=== PATIENT | male | born 2005 | race Caucasian/White ===

== ENCOUNTER 2024-02-03 20:01 | Inpatient (IN) ==
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
[2024-02-03] MEDS: ACETAMINOPHEN 500 MG TAB PO STA (21:02)
[2024-02-03] MEDS: SODIUM CHLORIDE 0.9% 500 ML IV ONE (21:06)
[2024-02-03] MEDS: ALBUT/IPRATROP 3MG/0.5MG NEB 3 ML VIAL NEB STA (21:08)
[2024-02-03] MEDS: cefTRIAXone SODIUM 2,000 MG/50 ML BAG IV STA (21:40)
--- NOTE | 2024-02-03 21:50 | XRay Report ---
SINGLE VIEW CHEST CLINICAL HISTORY: Cough and fever. Hypoxia. FINDINGS: An AP, portable, upright chest radiograph is obtained. No prior studies are available for c omparison at the time of dictation. The cardiomediastinal silhouette is unremarkable. Airspace consol idation is seen at both lung bases. Trace pleural effusions are suspected. No pneumothorax is seen. T he bony thorax is grossly intact. IMPRESSION: 1. Bibasilar airspace consolidation is typical for pneumonia. Clinical correlation will be required a nd radiographic follow-up to resolution is recommended. 2. Suspect trace pleural effusions. ACT 112: Negative or not required by law. Electronically signed by: Ricardo Mtz M.D. 02/03/2024 9:49 PM
[2024-02-03 21:54] LABS: Basophils # (auto) 0.02 K/uL (0.00-0.20); Basophils % (auto) 0.2 %; Eosinophils # (auto) 0.01 K/uL (0.00-0.50); Eosinophils % (auto) 0.1 %; Hematocrit (blood only) 37.9 % (42.0-52.0); Hemoglobin 12.7 g/dl (14.0-18.0); Immature Granulocytes # (auto) 0.06 K/uL (0.01-0.20); Immature Granulocytes % (auto) 0.6 %; Lymphocytes # (auto) 1.65 K/uL (1.20-3.40); Lymphocytes % (auto) 17.5 %; Mean Corpuscular Hemoglobin 28.2 pg (25.0-34.0); Mean Corpuscular Hgb Conc 33.5 g/dL (32.0-36.0); Mean Corpuscular Volume 84.2 fL (80.0-100.0); Mean Platelet Volume 9.8 fL (9.4-12.4); Monocytes # (auto) 0.86 K/uL (0.11-0.59); Monocytes % (auto) 9.1 %; Neutrophils # (auto) 6.82 K/uL (1.40-6.50); Neutrophils % (auto) 72.5 %; Platelet Count 256 K/uL (130-400); RDW Coefficient of Variation 13.6 % (11.5-14.5); RDW Standard Deviation 42.3 fL (36.4-46.3); White Blood Count 9.42 K/ul (4.8-10.8)
[2024-02-03] MEDS: DOXYCYCLINE HYCLATE 100 MG CAP PO STA (21:55)
[2024-02-03 22:12] LABS: Albumin Globulin Ratio 1.1 (0.9-2); Albumin Level 3.9 gm/dl (3.4-5.0); BUN Creatinine Ratio 14.6 (10-20); Bilirubin,Total 0.6 mg/dl (0.2-1.0); Creatinine Clr Calc Pharmacy 166.9 ml/min; Globulin 3.7 gm/dl (2.5-4.0); Potassium 3.7 mmol/L (3.5-5.1); Total Protein 7.6 gm/dl (6.0-8.3)
--- NOTE | 2024-02-03 22:29 | History & Physical Report ---
"Date of Service February 03, 2024 Assessment & Plan (1) Acute dyspnea: (2) Pneumonia: (3) Acute hypoxemic respiratory failure: Plan Pneumonia | Acute Hypoxic Respiratory Failure -Chest x-ray shows evidence of bibasilar lung space opacities -CT chest ordered, results pending -WBC 9.42, neutrophil predominance. Hgb slightly low at 12.7 -Respiratory biofire negative, MRSA negative -Blood cultures collected in ED, results pending -Consider possible environmental exposures of ?mold at home and handling fish bait -Histoplasmosis, legionella urine tests pending -Sputum cultures ordered -Lactate of 2.2 -> 1.1, procal 0.23 -Received Ceftriaxone, Doxycycline in ED -Will now start Zosyn, Azithromycin -Currently at 95% SPO2 on 2L NC, wean supplemental oxygen as able -Monitor daily CBC -Guaifenesin, Tylenol PRN. Duonebs PRN, encourage incentive spirometer use. Admit to: Med tele Diet: Regular VTE Prophylaxis: Lovenox Code Status: Full Code History of Present Illness Primary Care Provider: NO PCP Maikol Tamayo is a 18 year-old male who presented to the ED for concerns of shortness of breath. He has no significant past medical history. Patient notes that last weekend he began feeling unwell with body aches, nausea, vomiting. States he continued to be symptomatic throughout the week and went to urgent care on , had a negative COVID test at that time and was told he likely has a viral illness. Patient states that he has had intermittent fevers with temps up to 102F, although has not had a fever in over 24 hours. States that at this time his other symptoms have resolved except for a productive cough and shortness of breath. States that he decided to go to the ED today as he got out of bed and felt lightheaded and more short of breath. Currently patient endorses improvement in his breathing with supplemental oxygen and breathing treatment. Denies current chest pain, but endorses some pain with deep breaths and cough. Patient states that he works at [email or web address] in the [employer] department. Notes that last weekend around the time his symptoms started, he had emptied fish bait into the dumpster at work (does not routinely perform this task). Denies any recent travel out of the state or country, denies any known exposure to anyone who is sick or has traveled outside of the country. States he is a lifelong non-smoker and does not vape. Patient's mother is at bedside and recalls that there is some dark/?brown colored growths at the ceiling in the bathroom which she believes is due to the fact that the exhaust fan is not working. Denies any prior known mold exposures. ED Course: -CBC, CMP, procal, lactate -500mL NSS bolus -Chest x-ray -Respiratory biofire -Received Ceftriaxone, doxycycline Allergies Allergy/AdvReac Type Severity Reaction Status Date / Time No Known Allergies Allergy Verified 02/03/24 20:28 Home Medications Medication Instructions Recorded Confirmed Type No Known Home Medications 02/04/24 02/04/24 History Past Med/Surg History Problem List (Updated 02/03/24 @ 23:14 by Don Louie MD) Acute dyspnea (Acute) Pneumonia (Acute) Acute hypoxemic respiratory failure (Acute) Social History Smoking Status: Never smoker Second Hand Exposure: No; Do You Dip or Chew Tobacco: No; Tobacco Cessation Education Requested by Patient: No Hx Alcohol Use: No Hx Substance Use: No Preferred Language: Belarusian Communication Ability: Effective Accounting Support Specialist Required: No Beliefs That Will Affect Care: None Current Living Situation: Family Other Information That Helps Us Care for You: No Feels Safe at Home: Yes Safety Concerns: Feels Safe At This Time Assistive Devices: None Review of Systems Review of Systems: As per above Physical Exam Constitutional: WD/WN, vitals as above Eyes: + anicteric sclerae; no conjunctival abn ormality ENMT: Ears: no external ear abnormality Nose: no external nose abnormality Moist mucous membranes Neck: trachea midline, no thyromegaly No lymphadenopathy appreciated. Patient endorses mild tenderness posterior to left ear. Respiratory: normal respiratory effort; no respiratory distress Auscultation: + diminished lung sounds and + rhonchi Cardiovascular: Rate/Rhythm: regular rhythm and + tachycardic Extremities: no edema Gastrointestinal (Abdomen): Inspection/Auscultation: abdomen normal to inspection; abdomen not distended Percussion/Palpation: abdomen soft; abdomen nontender Musculoskeletal: Moves all limbs independently Skin: no rashes, warm and dry Neurologic: No focal deficits appreciated Psychiatric: A+Ox3, euthymic affect Results & Data Results & Data Vital Signs (Past 12 Hours) Vital Signs Temp Pulse Resp BP Pulse Ox O2 Del Method O2 Flow Rate 02/03/24 20:30 108 H 38 H 155/78 H 95 Nasal Cannula 2 02/03/24 20:15 116 H 02/03/24 20:12 88 L Nasal Cannula 3 02/03/24 20:08 88 L Room Air, Nasal Cannula 0 02/03/24 20:05 36.9 C 130 H 20 87 L Diagnostic Findings Chest X-Ray 02/03/24 20:43 SINGLE VIEW CHEST CLINICAL HISTORY: Cough and fever. Hypoxia. FINDINGS: An AP, portable, upright chest radiograph is obtained. No prior studies are available for comparison at the time of dictation. The cardiomediastinal silhouette is unremarkable. Airspace consolidation is seen at both lung bases. Trace pleural effusions are suspected. No pneumothorax is seen. The bony thorax is grossly intact. IMPRESSION: 1. Bibasilar airspace consolidation is typical for pneumonia. Clinical correlation will be required and radiographic follow-up to resolution is recom mended. 2. Suspect trace pleural effusions. ACT 112: Negative or not required by law. Electronically signed by: Ricardo Mtz M.D. 02/03/2024 9:49 PM Supervising Physician Co-Signing Physician Notes Attending addendum: I have physically seen this patient, have supervised the medical residents activities, and agree with the H&P unless as otherwise noted. Assessment and Plan: Acute respiratory failure with hypoxia/bibasilar pneumonia- Patient reports exposure to fish bait while working at [employer] the day that he became sick Symptoms of shortness of breath, intermittently productive cough, and tingling of his skin Respiratory BioFire test negative MRSA negative Follow blood cultures Follow sputum cultures, histoplasmosis antibody, urine Legionella antigen From the ED received the following: Ceftriaxone 2 g IV, doxycycline 100 mg p.o., DuoNeb, normal saline 500 mL bolus and Tylenol 1 g p.o. Admit on Zosyn 4.5 g IV every 8 hours, and azithromycin 500 mg IV daily Guaifenesin extended release 1200 mg p.o. every 12 hours Acetaminophen 650 mg by mouth every 6 hours as needed mild pain or fever DuoNebs every 2 hours as needed Nasal cannula oxygen, titrate to keep pulse ox 94-95% Resident Activity Tracking Resident Involvement: Resident Care Provided Care Provided: Adult Hospital Medicine (2) Pneumonia Laterality: bilateral Lung location: lower lobe of lung Pneumonia type: due to unspecified organism Qualified Code(s): J18.9 - Pneumonia, unspecified organism"
[2024-02-03 22:41] LABS: Adenovirus PCR Not Detected (NotDetected); Bordetella parapertussis PCR Not Detected (NotDetected); Bordetella pertussis PCR Not Detected (NotDetected); Chlamydia pneumoniae PCR Not Detected (NotDetected); Coronavirus 229E PCR Not Detected (NotDetected); Coronavirus CoV-2 (COVID19)PCR Not Detected (NotDetected); Coronavirus HKU1 PCR Not Detected (NotDetected); Coronavirus NL63 PCR Not Detected (NotDetected); Coronavirus OC43PCR Not Detected (NotDetected); Human Metapneumovirus PCR Not Detected (NotDetected); Influenza A PCR Not Detected (NotDetected); Influenza B PCR Not Detected (NotDetected); Mycoplasma pneumoniae PCR Not Detected (NotDetected); Parainfluenza Virus 1 PCR Not Detected (NotDetected); Parainfluenza Virus 2 PCR Not Detected (NotDetected); Parainfluenza Virus 3 PCR Not Detected (NotDetected); Parainfluenza Virus 4 PCR Not Detected (NotDetected); Respiratory Syncytial VirusPCR Not Detected (NotDetected); Rhinovirus/Enterovirus PCR Not Detected (NotDetected)
[2024-02-04] MEDS ORDERED: POLYETHYLENE (MIRALAX) 17 GM PACK PO PRN (00:50)
[2024-02-04] MEDS ORDERED: ONDANSETRON INJ 2 MG/ML 2 ML VIAL IV PRN (00:50)
[2024-02-04] MEDS ORDERED: ALBUT/IPRATROP 3MG/0.5MG NEB 3 ML VIAL NEB PRN (00:50)
--- NOTE | 2024-02-04 01:46 | CT Scan Report ---
Exam(s): CT CHEST Without Contrast EXAM: CT Chest Without Intravenous Contrast CLINICAL HISTORY: Reason for exam: pneumonia, hypoxia. TECHNIQUE: Axial computed tomography images of the chest without intravenous contrast. CTDI is 28.1 mGy and DLP is 884.19 mGy-cm. Automated exposure control was utilized for the study. A dose lowering technique was utilized adhering to the principles of ALARA. COMPARISON: No relevant prior studies available. FINDINGS: Lungs: Consolidations with air bronchograms in the lingula and right lower lobe. Additional patchy infiltrates within the bilateral lung alexander. No mass. Pleural space: Trace right pleural effusion. No pneumothorax. Heart: Unremarkable. No cardiomegaly. No significant pericardial effusion. No significant coronary artery calcifications. Bones/joints: Unremarkable. No acute fracture. No dislocation. Soft tissues: Unremarkable. Vasculature: Unremarkable. No thoracic aortic aneurysm. Lymph nodes: Mildly enlarged mediastinal and right hilar lymph nodes, likely reactive. IMPRESSION: Consolidations with air bronchograms in the lingula and right lower lobe. Additional patchy infiltrates within the bilateral lung alexander. Appearance is consistent with multifocal pneumonia. Electronically signed by: Spencer Blanco M.D. 02/04/24 01:45 AM
[2024-02-04] MEDS: 4.5GM X1 IV STA (02:48)
[2024-02-04] MEDS: AZITHROMYCIN 500 MG in DEXTROSE 5% 250 ML IV SCH (02:49)
[2024-02-04] MEDS: ACETAMINOPHEN 325 MG TAB PO PRN (04:17)
--- NOTE | 2024-02-04 06:53 | Hospitalist Progress Note ---
"Date of Service February 04, 2024 Assessment & Plan (1) Acute dyspnea: (2) Pneumonia: (3) Acute hypoxemic respiratory failure: Plan Pneumonia | Acute Hypoxic Respiratory Failure -Chest x-ray shows evidence of bibasilar lung space opacities -CT chest ordered, results pending -WBC 9.42, neutrophil predominance. Hgb slightly low at 12.7 -Respiratory biofire negative, MRSA negative -Blood cultures collected in ED, results pending -Consider possible environmental exposures of ?mold at home and handling fish bait -Histoplasmosis, legionella urine tests pending -Sputum cultures ordered -Lactate of 2.2 -> 1.1, procal 0.23 -Received Ceftriaxone, Doxycycline in ED -Will now start Zosyn, Azithromycin -Currently at 95% SPO2 on 2L NC, wean supplemental oxygen as able -Monitor daily CBC -Guaifenesin, Tylenol PRN. Duonebs PRN, encourage incentive spirometer use. Admit to: Med tele Diet: Regular VTE Prophylaxis: Lovenox Code Status: Full Code Admission and Anticipated Discharge Date Admission Date: February 03, 2024 Results & Data Results & Data Vital Signs (Past 12 Hours) Vital Signs Temp Pulse Pulse Resp BP BP Pulse Ox 02/04/24 01:17 110 H 02/04/24 00:00 115 H 18 142/73 H 94 02/03/24 23:15 115 H 18 118/67 91 02/03/24 21:56 02/03/24 21:56 36.7 C 117 H 18 124/64 93 02/03/24 20:30 108 H 38 H 155/78 H 95 02/03/24 20:15 116 H 02/03/24 20:12 88 L 02/03/24 20:08 88 L 02/03/24 20:05 36.9 C 130 H 20 87 L O2 Del Method O2 Flow Rate 02/04/24 01:17 02/04/24 00:00 Nasal Cannula 3 02/03/24 23:15 Nasal Cannula 3 02/03/24 21:56 Nasal Cannula 2 02/03/24 21:56 Nasal Cannula 2 02/03/24 20:30 Nasal Cannula 2 02/03/24 20:15 02/03/24 20:12 Nasal Cannula 3 02/03/24 20:08 Room Air, Nasal Cannula 0 02/03/24 20:05 (2) Pneumonia Laterality: bilateral Lung location: lower lobe of lung Pneumonia type: due to unspecified organism Qualified Code(s): J18.9 - Pneumonia, unspecified organism"
[2024-02-04 07:06] LABS: Basophils # (auto) 0.02 K/uL (0.00-0.20); Basophils % (auto) 0.2 %; Eosinophils # (auto) 0.02 K/uL (0.00-0.50); Eosinophils % (auto) 0.2 %; Hematocrit (blood only) 35.4 % (42.0-52.0); Hemoglobin 12.1 g/dl (14.0-18.0); Immature Granulocytes # (auto) 0.05 K/uL (0.01-0.20); Immature Granulocytes % (auto) 0.6 %; Lymphocytes # (auto) 1.34 K/uL (1.20-3.40); Lymphocytes % (auto) 16.1 %; Mean Corpuscular Hemoglobin 28.3 pg (25.0-34.0); Mean Corpuscular Hgb Conc 34.2 g/dL (32.0-36.0); Mean Corpuscular Volume 82.9 fL (80.0-100.0); Mean Platelet Volume 9.3 fL (9.4-12.4); Monocytes # (auto) 0.69 K/uL (0.11-0.59); Monocytes % (auto) 8.3 %; Neutrophils % (auto) 74.6 %; Platelet Count 305 K/uL (130-400); RDW Coefficient of Variation 13.7 % (11.5-14.5); RDW Standard Deviation 41.1 fL (36.4-46.3); Red Blood Count 4.27 M/uL (4.70-6.10); White Blood Count 8.32 K/ul (4.8-10.8)
[2024-02-04 07:28] LABS: Albumin Level 3.8 gm/dl (3.4-5.0); BUN Creatinine Ratio 12.9 (10-20); Bilirubin,Total 0.6 mg/dl (0.2-1.0); Creatinine Clr Calc Pharmacy 160.3 ml/min; Globulin 3.7 gm/dl (2.5-4.0); Potassium 3.9 mmol/L (3.5-5.1); Total Protein 7.5 gm/dl (6.0-8.3)
[2024-02-04] MEDS: ENOXAPARIN INJ 40 MG/0.4 ML SYR SQ SCH (07:45)
[2024-02-04] MEDS: PIPERACILLIN/TAZOBACTAM 4.5 GM/100 ML BAG IV SCH (07:45)
--- NOTE | 2024-02-04 09:27 | Hospitalist Progress Note ---
Date of Service February 04, 2024 Assessment & Plan (1) Pneumonia: Plan: Presented after one week of worsening cough and shortness of breath. No PMH. -Chest x-ray shows evidence of bibasilar lung space opacities -CT chest: consisent with multifocal penumonia. - no leukocystosis. Respiratory biofire negative, MRSA negative. Procal 0.23 -Blood cultures: pending - sputum culture: needs to be recollected -Consider possible environmental exposures of ?mold at home and handling fish bait -Histoplasmosis, legionella urine tests pending -Continue Zosyn, Azithromycin -Guaifenesin, Tylenol PRN. Duonebs PRN, encourage incentive spirometer use. AM CBC (2) Acute hypoxemic respiratory failure: Plan: Baseline is room air - continue IS wean O2 as able, weaned down to 2L during my enconter Plan Dispo: continued inpatient stay DVT proh: lovenox Admission and Anticipated Discharge Date Admission Date: February 03, 2024 Supervising Physician Co-Signing Physician Notes Attending Attestation - Chart reviewed, care plan d/w JAMESON Garcia. I agree w/ the wright components of her documentation. Delta Ovalle MD Subjective Patient seen sitting up in bed eating breakfast. Reports feeling better than when he came in but still feeling short of breath Some cough feels like it is hard to take a deep breath, worse with activity denies fevers or chills overnight good appetite, moving bowels Tele - ST 100s Review of Systems Review of Systems: All systems reviewed & are unremarkable except as noted in Subjective Physical Exam Physical Exam: General: NAD, VS as above Resp: increase work of breathing to take deep breaths, lungs corase and diminished in the bases. Demonstrated use of IS, + cough CV: tachycardic, no murmur, Abd: normal bowel sounds, non tender, no hepatosplenomegaly Extremities: Moves all extremities, no edema Neuro: A&O x3, Skin: intact, no lesions noted Results & Data Results & Data Vital Signs (Past 12 Hours) Vital Signs Temp Pulse Pulse Resp BP Pulse Ox O2 Del Method 02/04/24 07:47 99.1 F 83 18 127/77 96 Nasal Cannula 02/04/24 01:17 110 H 02/04/24 00:00 115 H 18 142/73 H 94 Nasal Cannula 02/03/24 23:15 115 H 18 118/67 91 Nasal Cannula 02/03/24 21:56 Nasal Cannula 02/03/24 21:56 98.1 F 117 H 18 124/64 93 Nasal Cannula O2 Flow Rate 02/04/24 07:47 3 02/04/24 01:17 02/04/24 00:00 3 02/03/24 23:15 3 02/03/24 21:56 2 02/03/24 21:56 2 Laboratory Results CBC and chemistry reviewed PG Care Time/CCT Total # of Minutes Spent Total Time Spent with Patient: Total time spent is greater than 50% in coordination of care (as documented) at patient's floor/unit and/or counseling patient: Coding Level of Care Code 08080 SUB INP/OBS CARE 2MIN Diagnoses Pneumonia J18.9 Laterality: bilateral Lung location: lower lobe of lung Pneumonia type: due to unspecified organism Acute hypoxemic respiratory failure J96.01 (1) Pneumonia Laterality: bilateral Lung location: lower lobe of lung Pneumonia type: due to unspecified organism Qualified Code(s): J18.9 - Pneumonia, unspecified organism
--- NOTE | 2024-02-04 18:58 | Billing Data ---
Date of Service February 04, 2024 Coding Level of Care Code 93655 INT INP/OBS CARE
[2024-02-04] MEDS: guaiFENesin SUGAR FREE 200 MG/10 ML UDC PO PRN (20:37)
[2024-02-04] MEDS: KETOROLAC TROMETHAMINE 15 MG/ML VIAL IV PRN (23:53)
[2024-02-05 07:17] LABS: Basophils # (auto) 0.02 K/uL (0.00-0.20); Basophils % (auto) 0.3 %; Eosinophils # (auto) 0.19 K/uL (0.00-0.50); Eosinophils % (auto) 2.8 %; Hematocrit (blood only) 34.8 % (42.0-52.0); Hemoglobin 11.2 g/dl (14.0-18.0); Immature Granulocytes # (auto) 0.07 K/uL (0.01-0.20); Lymphocytes # (auto) 1.27 K/uL (1.20-3.40); Mean Corpuscular Hemoglobin 27.7 pg (25.0-34.0); Mean Corpuscular Hgb Conc 32.2 g/dL (32.0-36.0); Mean Corpuscular Volume 85.9 fL (80.0-100.0); Mean Platelet Volume 9.1 fL (9.4-12.4); Neutrophils # (auto) 4.32 K/uL (1.40-6.50); Neutrophils % (auto) 64.9 %; Platelet Count 321 K/uL (130-400); RDW Coefficient of Variation 13.9 % (11.5-14.5); RDW Standard Deviation 43.9 fL (36.4-46.3); Red Blood Count 4.05 M/uL (4.70-6.10); White Blood Count 6.67 K/ul (4.8-10.8)
[2024-02-05 07:24] LABS: BUN Creatinine Ratio 14.4 (10-20); Creatinine Clr Calc Pharmacy 164.3 ml/min; Potassium 4.1 mmol/L (3.5-5.1)
--- NOTE | 2024-02-05 11:49 | Hospitalist Progress Note ---
Date of Service February 05, 2024 Assessment & Plan (1) Pneumonia: Plan: Patient presented to the ED on 02/03/2024 after one week of worsening cough and shortness of breath. No PMH. -Chest x-ray shows evidence of bibasilar lung space opacities -CT chest: consistent with multifocal pneumonia. - no leukocytosis. Respiratory biofire negative, MRSA negative. Procal 0.23 -Blood cultures: negative at 24 hours. - sputum culture re-collection pending. -Consider possible environmental exposures of ?mold at home and handling fish bait -Histoplasmosis, legionella urine tests pending Reviewed CBC and BMP 02/04: stable. -Continue Zosyn, Azithromycin -Guaifenesin, Tylenol PRN. Duonebs PRN, encourage incentive spirometer use. AM CBC, BMP (2) Acute hypoxemic respiratory failure: Plan: Baseline is room air - continue IS - encourage weaning off oxygen if possible back to baseline of room air. at my encounter, patient was on 1L nasal cannula and appeared comfortable. Plan Dispo: continued inpatient stay, possible discharge home 02/05 pending patient's clinical status DVT proh: Isabellex Updated family at beside 02/04 Admission and Anticipated Discharge Date Admission Date: February 03, 2024 Subjective Patient seen and examined this morning. Patient's family at bedside. patient reports his cough breaking up more in his chest today. He feels his SOB has improved. He has worsened shortness of breath on exertion but feels it is improving. He denies any chest pain or additional symptoms. Physical Exam 2 Constitutional: WD/WN, vitals as above Eyes: PERRL, conjunctivae normal, anicteric sclerae Respiratory: Diminished lung sounds in the bases Cardiovascular: RRR, no murmur, no edema Skin: no rashes, warm and dry Psychiatric: A+Ox3, euthymic affect Results & Data Results & Data Vital Signs (Past 12 Hours) Vital Signs Temp Pulse Resp BP Pulse Ox O2 Del Method O2 Flow Rate 02/05/24 11:33 36.4 C L 103 H 20 139/81 93 Room Air 02/05/24 09:49 18 91 Nasal Cannula 1 02/05/24 09:25 Nasal Cannula 2 02/05/24 03:56 36.8 C 67 20 121/77 96 Room Air Laboratory Results 02/05/24 06:49 02/05/24 06:49 PG Care Time/CCT Total # of Minutes Spent Total Time Spent with Patient: Total time spent is greater than 50% in coordination of care (as documented) at patient's floor/unit and/or counseling patient: Coding Level of Care Code 69534 SUB INP/OBS CARE 2/35MIN Diagnoses Pneumonia J18.9 Laterality: bilateral Lung location: lower lobe of lung Pneumonia type: due to unspecified organism Acute hypoxemic respiratory failure J96.01 (1) Pneumonia Laterality: bilateral Lung location: lower lobe of lung Pneumonia type: due to unspecified organism Qualified Code(s): J18.9 - Pneumonia, unspecified organism
--- NOTE | 2024-02-05 12:10 | Electrocardiogram Report ---
Test Reason : Blood Pressure : */* mmHG Vent. Rate : 109 BPM Atrial Rate : 109 BPM P-R Int : 162 ms QRS Dur : 92 ms QT Int : 326 ms P-R-T Axes : 49 32 51 degrees QTcB Int : 439 ms Sinus tachycardia Otherwise normal ECG No previous ECGs available Confirmed by Rivera Rader ([id number]) on 02/05/2024 12:09:41 PM Referred By: REFERRED SELF Confirmed By: Rivera Rader
[2024-02-06 06:26] LABS: Basophils # (auto) 0.03 K/uL (0.00-0.20); Basophils % (auto) 0.4 %; Eosinophils % (auto) 4.3 %; Hematocrit (blood only) 37.5 % (42.0-52.0); Hemoglobin 12.1 g/dl (14.0-18.0); Immature Granulocytes # (auto) 0.11 K/uL (0.01-0.20); Immature Granulocytes % (auto) 1.6 %; Lymphocytes # (auto) 1.82 K/uL (1.20-3.40); Lymphocytes % (auto) 26.4 %; Mean Corpuscular Hemoglobin 27.6 pg (25.0-34.0); Mean Corpuscular Hgb Conc 32.3 g/dL (32.0-36.0); Mean Corpuscular Volume 85.6 fL (80.0-100.0); Monocytes # (auto) 0.56 K/uL (0.11-0.59); Monocytes % (auto) 8.1 %; Neutrophils # (auto) 4.08 K/uL (1.40-6.50); Neutrophils % (auto) 59.2 %; Platelet Count 440 K/uL (130-400); RDW Coefficient of Variation 13.8 % (11.5-14.5); RDW Standard Deviation 43.5 fL (36.4-46.3); Red Blood Count 4.38 M/uL (4.70-6.10)
[2024-02-06 06:36] LABS: BUN Creatinine Ratio 12.4 (10-20); Calcium 9.4 mg/dl (8.6-10.3); Creatinine Clr Calc Pharmacy 165.9 ml/min; Potassium 4.2 mmol/L (3.5-5.1)
[2024-02-06 07:27] VITALS: O2SAT 93
[2024-02-06 08:34] VITALS: TEMP 98.2
--- NOTE | 2024-02-06 10:05 | Discharge Summary ---
Discharge Summary Date of Service February 06, 2024 Principal Dx & Hospital Course #1 = Principal Diagnosis (1) Pneumonia: Patient presented to the ED on 02/03/2024 after one week of worsening cough and shortness of breath. No PMH. -Chest x-ray shows evidence of bibasilar lung space opacities -CT chest: consistent with multifocal pneumonia. - no leukocytosis. Respiratory biofire negative, MRSA negative. Procal 0.23 -Blood cultures: negative at 48 hours. - sputum sample re-collection positive for gram + and gram - bacteria. Culture pending. -Consider possible environmental exposures of ?mold at home and handling fish bait -Histoplasmosis, legionella urine tests pending - CBC and BMP 02/05: stable. - Completed 3 day course of azithromycin on 02/05. On Zosyn while inpatient and transitioned to PO Augmentin for additional 4.5 days outpatient. Recommended to use Mucinex and Tylenol prn at home. (2) Acute hypoxemic respiratory failure: Baseline is room air - continue IS -Weaned to room air on 02/04 and tolerating well. O2 sat 93%. Admission HPI Per Admitting Provider Maikol Tamayo is a 18 year-old male who presented to the ED for concerns of shortness of breath. He has no significant past medical history. Patient notes that last weekend he began feeling unwell with body aches, nausea, vomiting. States he continued to be symptomatic throughout the week and went to urgent care on , had a negative COVID test at that time and was told he likely has a viral illness. Patient states that he has had intermittent fevers with temps up to 102F, although has not had a fever in over 24 hours. States that at this time his other symptoms have resolved except for a productive cough and shortness of breath. States that he decided to go to the ED today as he got out of bed and felt lightheaded and more short of breath. Currently patient endorses improvement in his breathing with supplemental oxygen and breathing treatment. Denies current chest pain, but endorses some pain with deep breaths and cough. Patient states that he works at [email or web address] in the [employer]. Notes that last weekend around the time his symptoms started, he had emptied fish bait into the dumpster at work (does not routinely perform this task). Denies any recent travel out of the state or country, denies any known exposure to anyone who is sick or has traveled outside of the country. States he is a lifelong non-smoker and does not vape. Patient's mother is at bedside and recalls that there is some dark/?brown colored growths at the ceiling in the bathroom which she believes is due to the fact that the exhaust fan is not working. Denies any prior known mold exposures. ED Course: -CBC, CMP, procal, lactate -500mL NSS bolus -Chest x-ray -Respiratory biofire -Received Ceftriaxone, doxycycline Discharge Plan Discharge Items Patient Disposition: Home - Self-Care Reason For Visit: PNEUMONIA Discharge Diagnosis: pneumonia Activity: Resume your previous activity Non-emergency contact: Primary Care Provider Call non-emergency contact if: you have any medication questions, your symptoms worsen and you have a fever Follow-up/Referrals: PCP,NO [Primary Care Provider] - Diet: Regular Addtl Attending Provider Instructions: Mr. Tamayo, You were recently hospitalized for shortness of breath and found to have pneumonia. Please see recommendations below regarding your discharge. 1. Please take Augmentin every 8 hours for the next 4 and a half days. Your first dose will be this evening around 7 pm. Please take with food to avoid GI upset. 2. Please see your PCP within 1-2 weeks of discharge. If you experience any worsening shortness of breath, chest pain, fevers, or chills please report back to the ER for further care. Sincerely, Jacklyn Harmon PA-C Pending Studies at Discharge: Yes Studies:: histoplasmosis and legionella studies Stand-Alone Forms: [facility] Integrated Order[employer] Systems, Work/School Release, Smoking Cessation Medications and DC Order Prescriptions: New amoxicillin-pot clavulanate 875-125 mg tablet 1 tab PO Q8H Qty: 13 0RF Discharge Orders: Discharge Order (Routine); Ordered 02/06/24 Ordered By: Jacklyn Harmon Admission Data Admit Date/Time: 02/03/24 23:21 Attending Provider: Cj Fernandez Admit Provider: Cari Carpio Primary Care Provider: PCP,NO Other Providers: Eric Lyman Hospital Stay Data Consultations 02/03/24 22:28 ED Decision to Admit Stat Diagnostic Imagining Performed 02/03/24 23:15 CT chest without contrast [CT chest diagnostic wo con] Stat Pending Results Patient Have Any Pending Studies at Discharge: Yes Discharge Instructions Given to Patient (Per Discharging Provider) Mr. Tamayo, Kenn were recently hospitalized for shortness of breath and found to have pneumonia. Please see recommendations below regarding your discharge. 1. Please take Augmentin every 8 hours for the next 4 and a half days. Your first dose will be this evening around 7 pm. Please take with food to avoid GI upset. 2. Please see your PCP within 1-2 weeks of discharge. If you experience any worsening shortness of breath, chest pain, fevers, or chills please report back to the ER for further care. Sincerely, Jacklyn Harmon PA-C Total Time Total Time Spent Total Time Spent (In Minutes): 40 Total Time Includes: Examination of the Patient, Discharge Planning and Medication Reconciliation Coding Level of Care Code 80289 INP/OBS DISCH >30 MIN Diagnoses Pneumonia J18.9 Laterality: bilateral Lung location: lower lobe of lung Pneumonia type: due to unspecified organism Acute hypoxemic respiratory failure J96.01
[2024-02-06 10:30] VITALS: BP 143/73; RESP 22
[2024-02-06 14:53] VITALS: PULSE 97
== END 2024-02-06 15:45 | disposition home or self-care (01) | DRG 193 ==
LOC: ED 20:01 → SUATTDRO 23:21 → 2N 23:21
DX: J96.01 Acute respiratory failure with hypoxia; J18.9 Pneumonia, unspecified organism; Z11.52 Encounter for screening for COVID-19